=== PATIENT | female | born 1975 | race African-American/Black ===

== ENCOUNTER 2021-08-02 07:03 | Emergency (ER) | payer MEDICAID ==
[~2021-08-02] VITALS: Ht 165.1 cm; Wt 59.0 kg
[2021-08-02 07:05] VITALS: BP 170/100
== END 2021-08-02 08:03 | disposition left against medical advice (07) ==
LOC: ER 07:45
DX: M25.531 Pain in right wrist (principal); F20.9 Schizophrenia, unspecified; F31.9 Bipolar disorder, unspecified; I10 Essential (primary) hypertension; G40.909 Epilepsy, unspecified, not intractable, without status epilepticus
CPT/HCPCS: 99283

== ENCOUNTER 2021-12-06 18:12 | Emergency (ER) | payer MEDICAID, OTHER ==
[~2021-12-06] VITALS: Ht 167.6 cm; Wt 75.0 kg
[2021-12-06 18:15] VITALS: BP 180/103
[2021-12-06] MEDS ORDERED: ACETAMINOPHEN 325MG TABLET PO STA (18:22)
[2021-12-06] MEDS ORDERED: MAGNESIUM/ALUMINUM HYDROXIDE/SIMETHICONE 30ML UDC PO STA (18:22)
[2021-12-06] MEDS ORDERED: FAMOTIDINE 20MG TABLET PO ONE (18:30)
[2021-12-06 18:59] LABS: BASOPHILS % 0.9 % (0.0-2.0); EOSINOPHILS % 1.3 % (0.0-5.0); HEMOGLOBIN. 11.9 g/dL (12.0-16.0); LYMPHOCYTES % 33.7 % (20.0-50.0); MEAN CORPUSCULAR HEMOGLOBIN 29.9 pg (28.0-32.0); MEAN CORPUSCULAR VOLUME 90.3 fL (81.0-99.0); MEAN PLATELET VOLUME 6.5 fl (7.4-10.4); MONOCYTES % 7.7 % (2.0-8.0); NEUTROPHILS % 56.4 % (40.0-76.0); PLATELET 291 x1000/uL (130-400); RED BLOOD CELL COUNT 3.99 mill/uL (4.2-5.4); RED CELL DISTRIBUTION WIDTH 14.2 % (11.6-14.6)
[2021-12-06 19:05] LABS: CHLORIDE 109 mEq/L (98-107)
[2021-12-06] MEDS ORDERED: MAGNESIUM/ALUMINUM HYDROXIDE/SIMETHICONE 30ML UDC PO NR (19:59)
[2021-12-06] MEDS ORDERED: ACETAMINOPHEN 325MG TABLET PO NR (19:59)
[2021-12-06] MEDS ORDERED: FAMOTIDINE 20MG TABLET PO NR (20:00)
== END 2021-12-06 21:39 | disposition home or self-care (01) ==
LOC: ER 18:12
DX: R07.89 Other chest pain (principal); F12.10 Cannabis abuse, uncomplicated; F20.9 Schizophrenia, unspecified; F31.9 Bipolar disorder, unspecified; F41.9 Anxiety disorder, unspecified; I10 Essential (primary) hypertension; G40.909 Epilepsy, unspecified, not intractable, without status epilepticus
CPT/HCPCS: 36415; 71045; 80053; 83880; 84484; 85025; 93005; 99285